=== PATIENT | female | born 1990 | race Caucasian/White ===

== ENCOUNTER 2020-06-23 14:22 | Outpatient (CLI) | payer OTHER, SELFPAY ==
[2020-06-23 14:43] VITALS: BP 124/80; PULSE 81
[2020-06-23 14:50] VITALS: BP 115/71; PULSE 78
[2020-06-23 15:01] VITALS: BP 129/81; PULSE 85
[2020-06-23 15:06] LABS: Basophils Percent Auto 0.1 % (0.2-1.2); Eosinophils Absolute Auto 0.1 K/mm3 (0-0.3); Eosinophils Percent Auto 0.5 % (0-4.4); Hematocrit 32.9 % (37.0-47.0); Hemoglobin 10.7 g/dL (12.0-15.0); Immature Granulocyte Absolute 0.08 K/mm3 (0.00-0.031); Immature Granulocyte Percent A 0.7 % (0-0.5); Lymphocytes Absolute Auto 2.24 K/mm3 (0.9-3.2); Mean Corpuscular HGB Conc 32.5 g/dl (32-36); Mean Corpuscular Hemoglobin 28.6 pg (26-34); Monocytes Absolute Auto 0.6 K/mm3 (0.1-0.6); Monocytes Percent Auto 5.6 % (2.6-8.5); Neutrophils Absolute Auto 8.2 K/mm3 (1.3-6.7); Neutrophils Percent Auto 73.1 % (45.5-73.1); Platelet Count Result 224 k/mm3 (150-375); Red Blood Count 3.74 M/mm3 (4.2-5.4); Red Cell Distribution Width 14.4 % (11.5-14.5); White Blood Count 11.2 K/mm3 (4.5-10.0)
[2020-06-23 15:07] LABS: Add Urine Microscopic? NO; Appearance Urine Clear (Clear); Bilirubin Urine Negative (Negative); Blood Urine Negative (Negative); Color Urine Colorless (Yellow); Glucose Urine UA Negative (Negative); Ketones Urine Negative (Negative); Leukocyte Esterase Ur Negative LEU/UL (Negative); Nitrate Urine Negative (Negative); Protein Urine Negative (Negative); Specific Grav Ur 1.005 (1.001-1.035); Urobilinogen Urine Negative mg/dL (<2.0)
[2020-06-23 15:13] VITALS: BMI 39.4
[2020-06-23 15:16] VITALS: BP 126/75; PULSE 90
[2020-06-23 15:17] VITALS: BP 126/75; PULSE 89
[2020-06-23 15:20] LABS: Alanine Aminotransferase 17 U/L (4-35); Albumin Level 3.4 g/dL (3.5-5.1); Alkaline Phosphatase 105 U/L (38-126); Anion Gap 6 mmol/L (8-16); Aspartate Amino Transferase 21 U/L (14-36); Bilirubin,Total 0.2 mg/dL (0.2-1.3); Blood Urea Nitrogen 11 mg/dL (7-17); Calcium 9.3 mg/dL (8.4-10.2); Carbon Dioxide 23 mmol/L (22-30); Chloride 105 mmol/L (98-107); Creatinine Urine 18.5 mg/dL; Estimated CRCL calculation 161 ml/min; Estimated Glomerular Filt Rate > 60; Glucose 102 mg/dL (65-105); Potassium 3.9 mmol/L (3.4-5.0); Sodium 134 mmol/L (137-145); Total Protein Urine Random 12 mg/dL; Ur Ttl Prot Creatinine Ratio 0.65 mg/mg (0-0.20); Uric Acid 5.7 mg/dL (2.5-7.5)
[2020-06-23 15:31] VITALS: BP 129/77; PULSE 80
--- NOTE | 2020-06-23 15:38 | PC.NURSE ---
Dr. Bo Estes returned page and informed of BP's, reactive NST, and lab results. Order for discharge received.
--- NOTE | 2020-06-23 15:41 | PM.OBTRLD ---
OB - Triage/Final Diagnosis Visit Information Reason for evaluation: other (gest htn) Evaluation Laboratory results: Laboratory Tests 06/23/20 06/23/20 06/23/20 14:57 14:57 14:57 WBC 11.2 H RBC 3.74 L Hgb 10.7 L Hct 32.9 L MCV 88.0 MCH 28.6 MCHC 32.5 RDW 14.4 Plt Count 224 MPV 12.0 H Immature Gran % (Auto) 0.7 H Neut % (Auto) 73.1 Lymph % (Auto) 20.0 [place] % (Auto) 5.6 Eos % (Auto) 0.5 Baso % (Auto) 0.1 L Lymph # (Auto) 2.24 [place] # (Auto) 0.6 Eos # (Auto) 0.1 Baso # (Auto) 0.0 Abs Immat Gran (auto) 0.08 H Absolute Neuts (auto) 8.2 H Absolute Nucleated RBC 0.0 Nucleated RBC % 0.0 Sodium 134 L Potassium 3.9 Chloride 105 Carbon Dioxide 23 Anion Gap 6 L BUN 11 Creatinine 0.60 L Estim Creat Clear Calc 161 Estimated GFR > 60 Glucose 102 Uric Acid 5.7 Calcium 9.3 Total Bilirubin 0.2 AST 21 ALT 17 Alkaline Phosphatase 105 Total Protein 6.0 L Albumin 3.4 L Urine Color Urine Appearance Urine pH Ur Specific [place] Urine Protein Urine Glucose (UA) Urine Ketones Ur Blood (Man) Urine Nitrate Urine Bilirubin Urine Urobilinogen Leukocyte Esterase Rfl U Random Total Protein 12 Urine Creatinine 18.5 06/23/20 14:57 WBC RBC Hgb Hct MCV MCH MCHC RDW Plt Count MPV Immature Gran % (Auto) Neut % (Auto) Lymph % (Auto) [place] % (Auto) Eos % (Auto) Baso % (Auto) Lymph # (Auto) [place] # (Auto) Eos # (Auto) Baso # (Auto) Abs Immat Gran (auto) Absolute Neuts (auto) Absolute Nucleated RBC Nucleated RBC % Sodium Potassium Chloride Carbon Dioxide Anion Gap BUN Creatinine Estim Creat Clear Calc Estimated GFR Glucose Uric Acid Calcium Total Bilirubin AST ALT Alkaline Phosphatase Total Protein Albumin Urine Color Colorless Urine Appearance Clear Urine pH 7.0 Ur Specific [place] 1.005 Urine Protein Negative Urine Glucose (UA) Negative Urine Ketones Negative Ur Blood (Man) Negative Urine Nitrate Negative Urine Bilirubin Negative Urine Urobilinogen Negative Leukocyte Esterase Rfl Negative U Random Total Protein Urine Creatinine Vital signs: Vital Signs - 24 hr 06/23/20 14:43 06/23/20 14:50 06/23/20 15:01 Pulse Rate 81 78 85 Blood Pressure 115/71 129/81 Blood Pressure [Left Arm] 124/80 06/23/20 15:16 06/23/20 15:17 06/23/20 15:31 Pulse Rate 90 89 80 Blood Pressure 126/75 129/77 Blood Pressure [Left Arm] 126/75
== END 2020-06-23 15:48 ==
LOC: ANHOBOP 14:26 → ANHOBPP 14:45
PROVIDERS: PCP Family Medicine; Visit Provider Obstetrics & Gynecology
DX: O13.9 Gestational [pregnancy-induced] hypertension without significant proteinuria, unspecified trimester (principal); Z3A.00 Weeks of gestation of pregnancy not specified
CPT/HCPCS: 36415; 59025; 80053; 81003; 82570; 84156; 84550; 85025; 99199

== ENCOUNTER 2020-07-14 04:52 | Inpatient (IN) | payer OTHER, SELFPAY ==
[2020-07-14] VITALS (94 sets, daily range): BP systolic 123–155; BP diastolic 54–102; PULSE 71–145; RESP 14–18; TEMP 36.6–37.2; O2SAT 72–100; BMI 40.2
--- NOTE | 2020-07-14 04:59 | LDADM ---
This patient, Edith White, was admitted to Labor/Delivery/Recovery 104 on 07/14/20 at 04:52. Plans for labor, pain management and were discussed with patient. Patient/family oriented to hospital policies and general routines including ID bracelet, bed and alarms, visiting hours, pain management, procedures, bathroom and other care routines, personal items, smoking policy, room service/diet and guest tray routines, security routines, and visiting hours. Patient/Family are encouraged to report perceived risks to care and to ask questions if they do not understand what they are told or what they should do. See OBIX for further documentation.
[2020-07-14] MEDS: LACTATED RINGERS 1,000 ML 125 ML IV CONT ×2 (05:31→07:15)
[2020-07-14] MEDS: OXYTOCIN 30 UNITS/NS 500 ML 30 UNITS/500 ML BAG 6 UNITS IV CONT (05:32)
[2020-07-14 05:46] LABS: Basophils Percent Auto 0.3 % (0.2-1.2); Eosinophils Absolute Auto 0.1 K/mm3 (0-0.3); Eosinophils Percent Auto 0.4 % (0-4.4); Hematocrit 36.6 % (37.0-47.0); Hemoglobin 11.8 g/dL (12.0-15.0); Immature Granulocyte Absolute 0.08 K/mm3 (0.00-0.031); Immature Granulocyte Percent A 0.7 % (0-0.5); Lymphocytes Absolute Auto 2.92 K/mm3 (0.9-3.2); Lymphocytes Percent Auto 25.9 % (18.3-44.2); Mean Corpuscular HGB Conc 32.2 g/dl (32-36); Mean Corpuscular Hemoglobin 28.4 pg (26-34); Mean Corpuscular Volume 88.2 fl (80-100); Mean Platelet Volume 12.6 fl (7.4-10.4); Monocytes Absolute Auto 0.6 K/mm3 (0.1-0.6); Monocytes Percent Auto 5.1 % (2.6-8.5); Neutrophils Absolute Auto 7.6 K/mm3 (1.3-6.7); Neutrophils Percent Auto 67.6 % (45.5-73.1); Platelet Count Result 209 k/mm3 (150-375); Red Blood Count 4.15 M/mm3 (4.2-5.4); Red Cell Distribution Width 14.9 % (11.5-14.5); White Blood Count 11.3 K/mm3 (4.5-10.0)
--- NOTE | 2020-07-14 06:32 | WPDOBADMIT ---
Obstetrics - Admit Note Admission Note: record reviewed. No pertinent additions to the history and/or any subsequent changes in the physical findings that are not consistent with the expected course of the were found. Additions to the history and/or subsequent changes in the physical findings follow. None.
--- NOTE | 2020-07-14 06:32 | PM.IMHP ---
H&P: HPI History of Present Illness Date/Time: 07/14/20 06:32 Chief Complaint: iol Narrative: Edith White is a 29 year old female whose last menstrual period was 10/09/2019, EDC is 07/15/2020, presents at 39 weeks gestation for induction of labor. has been uncomplicated. She has an early ultrasound confirming dates. Her cervix is favorable. She is negative for group B strep Review of Systems Review of Systems: All systems reviewed & are unremarkable except as noted in HPI and below PMFSH Family History Family History Grandparent Family history of heart disease in male family member before age 55 Family history of malignant neoplasm of breast Father Diabetes mellitus Mother Hypothyroidism Social History Social History Smoking status: Never smoker Second hand tobacco smoke exposure: No Alcohol intake: current Substance use: never Spiritual care concerns: No Meds Home Medications and Allergies Home Medications Medication Instructions Recorded Confirmed Type ferrous sulfate 325 mg PO DAILY 06/21/20 07/14/20 History prenat.vits,debora,[id number] 1 tablet PO DAILY 06/21/20 07/14/20 History [ #2] Allergies Allergy/AdvReac Type Severity Reaction Status Date / Time No Known Allergies Allergy Verified 06/21/20 12:41 Vital Signs Vital Signs - 24 hr 07/14/20 05:11 07/14/20 05:37 07/14/20 06:00 Temperature 98.3 F Pulse Rate 94 105 H Blood Pressure 125/80 131/83 07/14/20 06:31 Temperature Pulse Rate 90 Blood Pressure 123/88 Exam Const: General: no acute distress Eyes: General: appearance normal, both eyes and all related structures Neck: Neck: supple and no JVD Thyroid: thyroid normal Resp: Effort & Inspection: normal respiratory effort Auscultation: clear to auscultation bilaterally Cardio: Rate: regular rate Rhythm: regular rhythm GI: Inspection: non-distended GI Palp: Yes Soft to palpation, No Tenderness to palpation present (GI) and No Guarding due to palpation present (GI) Auscultation: normal bowel sounds : External Female Exam: normal external appearance Speculum Exam - Cervix: Cervical os closed (Cervix 4/80/1. AROM clear. FHTs were reassuring) Amniotic Fluid: clear Skin: General skin exam: no rashes or lesions noted Extrem: General: normal to inspection and no edema Psych: Mental Status: mental status grossly normal Affect: normal affect H&P: Results Labs Labs: Short CBC 07/14/20 Range/Units 05:25 WBC 11.3 H (4.5-10.0) K/mm3 Hgb 11.8 L (12.0-15.0) g/dL Hct 36.6 L (37.0-47.0) % Plt Count 209 (150-375) k/mm3 Assessment and Plan Additional Plan Impression: Term with favorable cervix Plan: Medical term for labor. Spontaneous vaginal delivery is expected. She has an epidural candidate
[2020-07-14 06:55] LABS: Rapid Plasma Reagin Non-Reactive (NonReactive)
--- NOTE | 2020-07-14 07:25 | WPDANESEPPF ---
Anes - Initial Pre Proc Eval Procedure: labor epidural Date/Time: 07/14/20 07:25 Surgeon: Prince Butcher MD Pre Op Diagnosis: labor pain Pre Op Diagnosis: Induction of Labor Patient Data Age: 29 Gender: F Height: 1.73 m Weight: 120 kg Last Vital Signs Temp 36.8 C 07/14/20 06:30 Pulse 84 07/14/20 07:25 BP 138/97 H 07/14/20 07:25 Pulse Ox 100 07/14/20 07:23 Allergies Allergy/AdvReac Type Severity Reaction Status Date / Time No Known Allergies Allergy Verified 06/21/20 12:41 Home Medications Medication Instructions Recorded Confirmed Type ferrous sulfate 325 mg PO DAILY 06/21/20 07/14/20 History prenat.vits,debora,[id number] 1 tablet PO DAILY 06/21/20 07/14/20 History [ #2] Laboratory Tests 07/14/20 07/14/20 07/14/20 05:25 05:25 05:25 WBC 11.3 K/mm3 H K/mm3 (4.5-10.0) RBC 4.15 M/mm3 L M/mm3 (4.2-5.4) Hgb 11.8 g/dL L g/dL (12.0-15.0) Hct 36.6 % L % (37.0-47.0) MCV 88.2 fl fl (80-100) MCH 28.4 pg pg (26-34) MCHC 32.2 g/dl g/dl (32-36) RDW 14.9 % H % (11.5-14.5) Plt Count 209 k/mm3 k/mm3 (150-375) MPV 12.6 fl H fl (7.4-10.4) Immature Gran % (Auto) 0.7 % H % (0-0.5) Neut % (Auto) 67.6 % % (45.5-73.1) Lymph % (Auto) 25.9 % % (18.3-44.2) [place] % (Auto) 5.1 % % (2.6-8.5) Eos % (Auto) 0.4 % % (0-4.4) Baso % (Auto) 0.3 % % (0.2-1.2) Lymph # (Auto) 2.92 K/mm3 K/mm3 (0.9-3.2) [place] # (Auto) 0.6 K/mm3 K/mm3 (0.1-0.6) Eos # (Auto) 0.1 K/mm3 K/mm3 (0-0.3) Baso # (Auto) 0.0 K/mm3 K/mm3 (0.0-0.1) Abs Immat Gran (auto) 0.08 K/mm3 H K/mm3 (0.00-0.031) Absolute Neuts (auto) 7.6 K/mm3 H K/mm3 (1.3-6.7) Absolute Nucleated RBC 0.0 K/mm3 K/mm3 (0.0-0.012) Nucleated RBC % 0.0 % % (0.0-0.2) RPR Non-reactive (NonReactive) Blood Type A Positive Antibody Screen Negative Patient hx anesthesia problems: none Family hx anesthesia problems: none PMFSH Family History Family History Grandparent Family history of heart disease in male family member before age 55 Family history of malignant neoplasm of breast Father Diabetes mellitus Mother Hypothyroidism Social History Social History Smoking status: Never smoker Second hand tobacco smoke exposure: No Alcohol intake: current Substance use: never Spiritual care concerns: No Anes - Eval Final PreProcedure Day of Procedure 07/14/20 07:25 Patient weight: morbidly obese ASA classification: III Anesthesia type and monitoring: regional epidural Informed Consent: The patient's anesthetic plan and its attendant risks and benefits were discussed with the patient/family/POA. Questions were solicited and answers provided to the satisfaction of the patient/family/POA.
--- NOTE | 2020-07-14 09:35 | PM.OBPNVD ---
OB - PN: Subj Subjective Date/time seen: 07/14/20 09:35 cx 8 by rn exam fhts reassuring OB - PN: Obj Data Labs CBC & Chem 7: 07/14/20 05:25 Labs: Laboratory Results - last 24 hr 07/14/20 07/14/20 07/14/20 05:25 05:25 05:25 WBC 11.3 H RBC 4.15 L Hgb 11.8 L Hct 36.6 L MCV 88.2 MCH 28.4 MCHC 32.2 RDW 14.9 H Plt Count 209 MPV 12.6 H Immature Gran % (Auto) 0.7 H Neut % (Auto) 67.6 Lymph % (Auto) 25.9 [place] % (Auto) 5.1 Eos % (Auto) 0.4 Baso % (Auto) 0.3 Lymph # (Auto) 2.92 [place] # (Auto) 0.6 Eos # (Auto) 0.1 Baso # (Auto) 0.0 Abs Immat Gran (auto) 0.08 H Absolute Neuts (auto) 7.6 H Absolute Nucleated RBC 0.0 Nucleated RBC % 0.0 RPR Non-reactive Blood Type A Positive Antibody Screen Negative OB - PN A/P Time Spent With Patient Time: Total time spent is greater than 50% in coordination of care (as documented) at patient's floor/unit and/or counseling patient:
--- NOTE | 2020-07-14 11:21 | PM.OBPRVD ---
OB - Delivery Note Procedure Delivery date: 07/14/20 Procedure: mil Intrapartal events: None Induction method: AROM Delivery augmentation: pitocin Delivery monitor: external FHT Route of delivery: Episiotomy description: None Laceration Description: Perineal - 2nd Degree Quantitative Blood Loss (ml): 158 Anesthesia type: Epidural Disposition: floor [place] Baby Date of : 07/14/20 Time of : 11:09 Weeks of gestation at delivery: 39 Infant gender: Male Weight (pounds): 8 Weight (ounces): 9 presentation: vertex position: Right Occiput Anterior Placenta delivery description: Spontaneous cord vessel description: 3 Vessels and Clamped/Cut score one minute: 9 score five minutes: 9
[2020-07-14] MEDS: OXYTOCIN 30 UNITS/NS 500 ML 30 UNITS/500 ML BAG 125 UNITS IV CONT (11:38)
--- NOTE | 2020-07-14 15:33 | PC.NURSE ---
Consulted with patient, reviewed feeding cues, frequencies, duration of feedings, feeding elimination flow sheet, and signs of adequate intake. Demonstrated stimulation techniques to wake for feeding. Assisted with to breast. Reviewed positioning/alignment, holding breast and asymmetrical latch on. was sleepy and unable to latch correctly. Reviewed signs of a correct latch, effective nursing and suck swallow ratio. Instructed mother to call out for RN assistance if she is unable to latch infant for feeding or she has discomfort with nursing. Instructed feeding should be initiated three hours from start of last feeding or if feeding cues are noted before. Infant put skin to skin and mom encouraged to watch for feeding cues and to attempt again in 30 minutes. Mother voiced understanding of information shared.
[2020-07-14] MEDS: DOCUSATE SODIUM 100 MG CAPSULE PO (16:57)
[2020-07-14] MEDS: IBUPROFEN 600 MG TABLET PO ×2 (16:57→23:32)
[2020-07-14] MEDS: LANOLIN (LANSINOH) 7.5 GM CREAM 1 APPLIC TOPICAL (16:57)
--- NOTE | 2020-07-14 18:28 | PC.NURSE ---
Addendum entered by Ave Emerson RN 07/14/20 18:29: Admitted at 1455 to room 281. Original Note: Patient transferred to post room # via 281 per wheelchair. Support person present. Oriented to unit, room, information board, rooming in, admission packet and security measures. Patient verbalizes understanding.
[2020-07-15 05:32] LABS: Hematocrit 30.3 % (37.0-47.0); Hemoglobin 9.9 g/dL (12.0-15.0)
[2020-07-15] MEDS: IBUPROFEN 600 MG TABLET PO ×4 (05:50→23:55)
--- NOTE | 2020-07-15 06:20 | PM.OBPNVD ---
OB - PN: Subj Subjective Date/time seen: 07/15/20 06:20 Patient comments: no complaints and pain well controlled baby status: doing well and nursing well OB - PN: Obj Data Labs CBC & Chem 7: 07/15/20 04:17 Labs: Laboratory Results - last 24 hr 07/14/20 07/14/20 07/15/20 05:25 05:25 04:17 Hgb 9.9 L Hct 30.3 L RPR Non-reactive Blood Type A Positive Antibody Screen Negative OB - PN A/P Plan day: 1 Plan: routine care Time Spent With Patient Time: Total time spent is greater than 50% in coordination of care (as documented) at patient's floor/unit and/or counseling patient: Time with patient: less than 15 minutes Review of Systems Review of Systems: All systems reviewed & are unremarkable except as noted in HPI and below Exam Const: General: no acute distress Eyes: General: appearance normal, both eyes and all related structures Neck: Neck: supple and no JVD Thyroid: thyroid normal Resp: Effort & Inspection: normal respiratory effort Auscultation: clear to auscultation bilaterally Cardio: Rate: regular rate Rhythm: regular rhythm GI: Inspection: non-distended GI Palp: Yes Soft to palpation, No Tenderness to palpation present (GI) and No Guarding due to palpation present (GI) Auscultation: normal bowel sounds : General: Yes bladder normal to palpation External Female Exam: normal external appearance Speculum Exam - Vagina: normal vaginal discharge and No vaginal bleeding Speculum Exam - Cervix: nontender Bimanual exam- vagina & uterus: bladder normal to palpation and No Cervical tenderness present OB/external & speculum: No vaginal bleeding Skin: General skin exam: no rashes or lesions noted Extrem: General: normal to inspection and no edema Psych: Mental Status: mental status grossly normal Affect: normal affect
[2020-07-15 07:15] VITALS: PULSE 87; RESP 14; O2SAT 97
[2020-07-15 08:00] VITALS: BP 127/69; PULSE 84; RESP 18; TEMP 36.7; O2SAT 99
--- NOTE | 2020-07-15 09:00 | WPDANLDPN2 ---
Anes-Prog Note L&D Date/Time: 07/15/20 09:00 Comfortable throughout: labor and delivery Neuraxial method: epidural Epidural/Spinal procedure site: clean & non-tender Neuro status: Neuro function grossly intact. Cardiovascular status: normal Respiratory status: normal Airway patency: baseline Mental status: baseline Post-Op hydration status: normal Vital Signs: Last Vital Signs Temp 37.0 C 07/14/20 19:20 Pulse 87 07/15/20 07:15 Resp 14 07/15/20 07:15 BP 123/62 07/14/20 19:20 Pulse Ox 97 07/15/20 07:15 Pain score (VAS): 1 Post-procedural complaints: none Patient feedback: Patient satisfied with anesthetic care.
[2020-07-15] MEDS: MULTIVIT/MIN/PREN/FOL AC/IRON TABLET 1 TAB PO (09:08)
[2020-07-15] MEDS: DOCUSATE SODIUM 100 MG CAPSULE PO ×2 (09:08→17:28)
[2020-07-15] MEDS: POLYSACCHARIDE IRON COMPLEX 150 MG CAPSULE PO ×2 (09:08→17:28)
[2020-07-15 20:10] VITALS: BP 137/75; PULSE 104; RESP 16; TEMP 36.8; O2SAT 98
[2020-07-16 04:58] LABS: Basophils Percent Auto 0.3 % (0.2-1.2); Eosinophils Absolute Auto 0.2 K/mm3 (0-0.3); Eosinophils Percent Auto 1.5 % (0-4.4); Hematocrit 28.9 % (37.0-47.0); Hemoglobin 9.5 g/dL (12.0-15.0); Immature Granulocyte Absolute 0.13 K/mm3 (0.00-0.031); Lymphocytes Percent Auto 24.8 % (18.3-44.2); Mean Corpuscular HGB Conc 32.9 g/dl (32-36); Mean Corpuscular Hemoglobin 28.8 pg (26-34); Mean Corpuscular Volume 87.6 fl (80-100); Mean Platelet Volume 12.2 fl (7.4-10.4); Monocytes Absolute Auto 0.7 K/mm3 (0.1-0.6); Monocytes Percent Auto 5.1 % (2.6-8.5); Neutrophils Absolute Auto 8.7 K/mm3 (1.3-6.7); Neutrophils Percent Auto 67.3 % (45.5-73.1); Platelet Count Result 179 k/mm3 (150-375); Red Cell Distribution Width 15.1 % (11.5-14.5); White Blood Count 12.9 K/mm3 (4.5-10.0)
[2020-07-16 05:05] LABS: Alanine Aminotransferase 17 U/L (4-35); Albumin Level 3.1 g/dL (3.5-5.1); Alkaline Phosphatase 86 U/L (38-126); Anion Gap 5 mmol/L (8-16); Aspartate Amino Transferase 23 U/L (14-36); Bilirubin,Total 0.2 mg/dL (0.2-1.3); Blood Urea Nitrogen 11 mg/dL (7-17); Calcium 8.5 mg/dL (8.4-10.2); Carbon Dioxide 25 mmol/L (22-30); Chloride 106 mmol/L (98-107); Estimated CRCL calculation 163 ml/min; Estimated Glomerular Filt Rate > 60; Glucose 86 mg/dL (65-105); Sodium 136 mmol/L (137-145)
[2020-07-16] MEDS: WITCH HAZEL 40 PADS 1 PAD TOPICAL (05:24)
[2020-07-16] MEDS: IBUPROFEN 600 MG TABLET PO ×2 (05:24→12:09)
--- NOTE | 2020-07-16 08:24 | PM.OBPNVD ---
OB - PN: Subj Subjective Date/time seen: 07/16/20 08:24 Patient comments: no complaints and pain well controlled baby status: doing well and nursing well OB - PN: Obj Data Labs CBC & Chem 7: 07/16/20 04:40 07/16/20 04:40 Labs: Laboratory Results - last 24 hr 07/16/20 07/16/20 04:40 04:40 WBC 12.9 H RBC 3.30 L Hgb 9.5 L Hct 28.9 L MCV 87.6 MCH 28.8 MCHC 32.9 RDW 15.1 H Plt Count 179 MPV 12.2 H Immature Gran % (Auto) 1.0 H Neut % (Auto) 67.3 Lymph % (Auto) 24.8 [place] % (Auto) 5.1 Eos % (Auto) 1.5 Baso % (Auto) 0.3 Lymph # (Auto) 3.20 [place] # (Auto) 0.7 H Eos # (Auto) 0.2 Baso # (Auto) 0.0 Abs Immat Gran (auto) 0.13 H Absolute Neuts (auto) 8.7 H Absolute Nucleated RBC 0.0 Nucleated RBC % 0.0 Sodium 136 L Potassium 4.0 Chloride 106 Carbon Dioxide 25 Anion Gap 5 L BUN 11 Creatinine 0.60 L Estim Creat Clear Calc 163 Estimated GFR > 60 Glucose 86 Calcium 8.5 Total Bilirubin 0.2 AST 23 ALT 17 Alkaline Phosphatase 86 Total Protein 6.0 L Albumin 3.1 L OB - PN A/P Plan day: 2 Plan: routine care, discharge home and follow up 6 weeks Time Spent With Patient Time: Total time spent is greater than 50% in coordination of care (as documented) at patient's floor/unit and/or counseling patient: Time with patient: less than 15 minutes Review of Systems Review of Systems: All systems reviewed & are unremarkable except as noted in HPI and below Exam Const: General: no acute distress Eyes: General: appearance normal, both eyes and all related structures Neck: Neck: supple and no JVD Thyroid: thyroid normal Resp: Effort & Inspection: normal respiratory effort Auscultation: clear to auscultation bilaterally Cardio: Rate: regular rate Rhythm: regular rhythm GI: Inspection: non-distended GI Palp: Yes Soft to palpation, No Tenderness to palpation present (GI) and No Guarding due to palpation present (GI) Auscultation: normal bowel sounds : General: Yes bladder normal to palpation External Female Exam: normal external appearance Speculum Exam - Vagina: normal vaginal discharge and No vaginal bleeding Speculum Exam - Cervix: nontender Bimanual exam- vagina & uterus: bladder normal to palpation and No Cervical tenderness present OB/external & speculum: No vaginal bleeding Skin: General skin exam: no rashes or lesions noted Extrem: General: normal to inspection and no edema Psych: Mental Status: mental status grossly normal Affect: normal affect
--- NOTE | 2020-07-16 08:25 | PM.DS ---
DS: Admitting Diagnosis Admitting Diagnosis Admitting Diagnosis: term iup DS: Summary Hospital Course Hospital Course: the patient was admitted for induction of labor and underwent spontaneous vaginal delivery. Her hospital course was unremarkable. She did complain of some fatigue however her hemoglobin and labs all remained within limits she was up, voiding without difficulty passing gas, eating, and general without complaints. Time Spent with Patient Time attestation: Total time spent providing and/or coordinating discharge services: Exam Const: General: no acute distress Eyes: General: appearance normal, both eyes and all related structures Neck: Neck: supple and no JVD Thyroid: thyroid normal Resp: Effort & Inspection: normal respiratory effort Auscultation: clear to auscultation bilaterally Cardio: Rate: regular rate Rhythm: regular rhythm GI: Inspection: non-distended GI Palp: Yes Soft to palpation, No Tenderness to palpation present (GI) and No Guarding due to palpation present (GI) Auscultation: normal bowel sounds : General: Yes bladder normal to palpation External Female Exam: normal external appearance Speculum Exam - Vagina: normal vaginal discharge and No vaginal bleeding Speculum Exam - Cervix: nontender Bimanual exam- vagina & uterus: bladder normal to palpation and No Cervical tenderness present OB/external & speculum: No vaginal bleeding Skin: General skin exam: no rashes or lesions noted Extrem: General: normal to inspection and no edema Psych: Mental Status: mental status grossly normal Affect: normal affect DS: Data Data Completed and Pending Labs on day of discharge: Labs from last 24 hours 07/16/20 07/16/20 04:40 04:40 WBC 12.9 H RBC 3.30 L Hgb 9.5 L Hct 28.9 L MCV 87.6 MCH 28.8 MCHC 32.9 RDW 15.1 H Plt Count 179 MPV 12.2 H Immature Gran % (Auto) 1.0 H Neut % (Auto) 67.3 Lymph % (Auto) 24.8 [place] % (Auto) 5.1 Eos % (Auto) 1.5 Baso % (Auto) 0.3 Lymph # (Auto) 3.20 [place] # (Auto) 0.7 H Eos # (Auto) 0.2 Baso # (Auto) 0.0 Abs Immat Gran (auto) 0.13 H Absolute Neuts (auto) 8.7 H Absolute Nucleated RBC 0.0 Nucleated RBC % 0.0 Sodium 136 L Potassium 4.0 Chloride 106 Carbon Dioxide 25 Anion Gap 5 L BUN 11 Creatinine 0.60 L Estim Creat Clear Calc 163 Estimated GFR > 60 Glucose 86 Calcium 8.5 Total Bilirubin 0.2 AST 23 ALT 17 Alkaline Phosphatase 86 Total Protein 6.0 L Albumin 3.1 L Discharge Plan Discharge Attending physician on discharge: Prince Butcher Discharging Clinician: Prince Butcher Patient Disposition: Home, Self-Care Activity: may shower, no straining and pelvic rest Diet: heart healthy Patient Instructions: Antibiotic Form Stand Alone Forms: General Discharge Information Follow-up/Referrals: Prince Butcher MD [Physician] - Discharge Medications: Continued ferrous sulfate 325 mg (65 mg iron) Tablet 325 mg PO DAILY RF: 0 #2 Tablet 1 tablet PO DAILY RF: 0 Date of admission: 07/14/20 04:52 Primary Care Provider: Ramesh Rendon Admitting Provider: Prince Butcher Attending physician on admission: Prince Butcher Condition: Stable
[2020-07-16 08:35] VITALS: BP 125/82; PULSE 97; RESP 18; TEMP 36.2
[2020-07-16] MEDS: MULTIVIT/MIN/PREN/FOL AC/IRON TABLET 1 TAB PO (09:38)
[2020-07-16] MEDS: DOCUSATE SODIUM 100 MG CAPSULE PO (09:38)
[2020-07-16] MEDS: POLYSACCHARIDE IRON COMPLEX 150 MG CAPSULE PO (09:38)
[2020-07-18 08:30] VITALS: BP 148/82; PULSE 87; RESP 20; TEMP 36.7; O2SAT 100
== END 2020-07-16 13:12 | disposition home or self-care (01) | DRG 807 ==
LOC: ANHLDR 04:56 → ANHOB2 15:07
PROVIDERS: Admitting Provider Obstetrics & Gynecology; PCP Family Medicine; Visit Provider Obstetrics & Gynecology
DX: O99.214 Obesity complicating childbirth (principal); Z37.0 Single live birth; Z3A.39 39 weeks gestation of pregnancy; E66.01 Morbid (severe) obesity due to excess calories; O70.1 Second degree perineal laceration during delivery
CPT/HCPCS: 36415; 80053; 85014; 85018; 85025; 86592; 86850; 86900; 86901; A9270; J2590; J2795; J7120

== ENCOUNTER 2020-08-01 20:30 | Outpatient (CLI) | payer OTHER, SELFPAY ==
[2020-08-01 21:05] VITALS: TEMP 38.2
[2020-08-01 21:14] LABS: Basophils Percent Auto 0.2 % (0.2-1.2); Eosinophils Absolute Auto 0.3 K/mm3 (0-0.3); Eosinophils Percent Auto 2.1 % (0-4.4); Hematocrit 36.5 % (37.0-47.0); Hemoglobin 11.2 g/dL (12.0-15.0); Immature Granulocyte Absolute 0.05 K/mm3 (0.00-0.031); Immature Granulocyte Percent A 0.4 % (0-0.5); Lymphocytes Absolute Auto 1.62 K/mm3 (0.9-3.2); Lymphocytes Percent Auto 12.3 % (18.3-44.2); Mean Corpuscular HGB Conc 30.7 g/dl (32-36); Mean Corpuscular Hemoglobin 27.8 pg (26-34); Mean Corpuscular Volume 90.6 fl (80-100); Mean Platelet Volume 10.5 fl (7.4-10.4); Monocytes Absolute Auto 0.8 K/mm3 (0.1-0.6); Neutrophils Absolute Auto 10.4 K/mm3 (1.3-6.7); Platelet Count Result 263 k/mm3 (150-375); Red Blood Count 4.03 M/mm3 (4.2-5.4); Red Cell Distribution Width 14.4 % (11.5-14.5); White Blood Count 13.2 K/mm3 (4.5-10.0)
[2020-08-01 21:19] LABS: Add Urine Microscopic? YES; Appearance Urine Clear (Clear); Bacteria Urine Trace /hpf; Bilirubin Urine Negative (Negative); Blood Urine 2+ (Negative); Color Urine Yellow (Yellow); Glucose Urine UA Negative (Negative); Ketones Urine Negative (Negative); Leukocyte Esterase Ur 3+ LEU/UL (NEGATIVE); Mucus Urine Rare /lpf; Nitrate Urine Negative (Negative); Protein Urine 1+ mg/dL (Negative); RBC Urine 21-50 /hpf (0-2); Squamous Epithelial Cell Urine Rare /hpf (Few); Urobilinogen Urine Negative mg/dL (<2.0); WBC Urine 16-20 /hpf (0-3)
[2020-08-01 21:21] LABS: Creatinine Urine 267.5 mg/dL; Specific Grav Ur 1.032 (1.001-1.035); Total Protein Urine Random 10 mg/dL; Ur Ttl Prot Creatinine Ratio 0.04 mg/mg (0-0.20)
[2020-08-01 21:25] LABS: Alanine Aminotransferase 46 U/L (4-35); Albumin Level 3.6 g/dL (3.5-5.1); Alkaline Phosphatase 91 U/L (38-126); Anion Gap 9 mmol/L (8-16); Aspartate Amino Transferase 25 U/L (14-36); Bilirubin,Total 0.3 mg/dL (0.2-1.3); Blood Urea Nitrogen 13 mg/dL (7-17); Calcium 8.4 mg/dL (8.4-10.2); Carbon Dioxide 24 mmol/L (22-30); Chloride 104 mmol/L (98-107); Estimated Glomerular Filt Rate > 60; Glucose 106 mg/dL (65-105); Potassium 3.6 mmol/L (3.4-5.0); Sodium 137 mmol/L (137-145); Uric Acid 6.6 mg/dL (2.5-7.5)
== END 2020-08-01 21:45 | disposition home or self-care (01) ==
PROVIDERS: Obstetrics & Gynecology; PCP Family Medicine; Referring Provider Obstetrics & Gynecology; Visit Provider Obstetrics & Gynecology
DX: O16.5 Unspecified maternal hypertension, complicating the puerperium (principal)
CPT/HCPCS: 36415; 80053; 81001; 82570; 84156; 84550; 85025; 87086; 87088

== ENCOUNTER 2020-08-03 12:26 | Inpatient (IN) | payer OTHER, SELFPAY ==
[2020-08-03] VITALS (29 sets, daily range): BP systolic 112–138; BP diastolic 68–106; PULSE 86–124; RESP 14–24; TEMP 36.2–36.6; O2SAT 97–100; BMI 36.1
--- NOTE | ~2020-08-03 | CT_ITS ---
EXAMINATION: CTA chest PE protocol DATE: 08/03/2020 14:47 INDICATION: Chest pain. TECHNIQUE: Computed tomography angiography (CTA) of the chest was performed with 100 mL Omnipaque-350 intravenous contrast timed to evaluate the pulmonary arteries. Coronal maximum intensity projection 3D-reconstructions were created by the technologist. Automated exposure control and iterative reconst ruction technique were employed. The dose-length product was 547.72 mGy-cm. COMPARISON: None. FINDINGS: There is smooth septal thickening in the lungs, consistent with mild pulmonary edema. There are small pleural effusions. The heart size is normal. No pericardial effusion. There is no pulmonar y embolus. There is mild thoracic spondylosis. IMPRESSION: 1. No pulmonary embolus. 2. Mild pulmonary edema. 3. Small pleural effusions. Reviewed, dictated and finalized at location A. STRATEGY
--- NOTE | ~2020-08-03 | XR_ITS ---
EXAMINATION: XR chest 2V DATE: 08/03/2020 13:40 INDICATION: Chest pain and shortness of breath TECHNIQUE: PA and lateral views of the chest were obtained. COMPARISON: Chest radiograph dated 07/05/2004 FINDINGS: Mild increased interstitial opacities with bronchial wall thickening the bilateral infrahilar regions . No other airspace opacities or pneumothorax. There are small bilateral pleural effusions with blunt ing at the left costophrenic angle and bilateral posterior sulci. The cardiomediastinal silhouette is normal. Visualized bones and soft tissues are unremarkable. IMPRESSION: 1. Very small bilateral pleural effusions. 2. Mild increased interstitial pattern with bronchial wall thickening in the bilateral infrahilar reg ions. Differential would include minimal pulmonary edema, bronchitis, early or viral pneumonia and re active airway disease/asthma. Reviewed, dictated and finalized at location B. IOLOGY PHYSICIAN ASSISTANT IMPRESSION: 1. Very small bilateral pleural effusions. 2. Mild increased interstitial pattern with bronchial wall thickening in the bi lateral infrahilar regions. Differential would include minimal pulmonary edema, bronchitis, early or viral pneumonia and reactive airway disease/asthma.
--- NOTE | 2020-08-03 12:27 | ECG_ITS ---
Measurements Intervals [place] Rate: 85 P: 54 AR: 164 QRS: 64 QRSD: 95 T: 38 QT: 327 QTc: 390 Interpretive Statements SINUS RHYTHM NONSPECIFIC T-WAVE ABNORMALITY- INFERIOR LEADS BASELINE ARTIFACT- I, II, AVR, AVL, V1-V2 BORDERLINE ECG Electronically Signed On 08-03-2020 12:44:40 VASCULAR SURGEON by Sukhjinder Cardenas D.O.
[2020-08-03 13:01] LABS: Basophils Percent Auto 0.2 % (0.2-1.2); Eosinophils Absolute Auto 0.3 K/mm3 (0-0.3); Eosinophils Percent Auto 2.5 % (0-4.4); Hematocrit 34.6 % (37.0-47.0); Immature Granulocyte Absolute 0.06 K/mm3 (0.00-0.031); Immature Granulocyte Percent A 0.5 % (0-0.5); Lymphocytes Percent Auto 16.6 % (18.3-44.2); Mean Corpuscular HGB Conc 31.8 g/dl (32-36); Mean Corpuscular Hemoglobin 28.1 pg (26-34); Mean Corpuscular Volume 88.3 fl (80-100); Mean Platelet Volume 10.8 fl (7.4-10.4); Monocytes Absolute Auto 0.6 K/mm3 (0.1-0.6); Monocytes Percent Auto 5.2 % (2.6-8.5); Platelet Count Result 268 k/mm3 (150-375); Red Blood Count 3.92 M/mm3 (4.2-5.4); Red Cell Distribution Width 14.4 % (11.5-14.5)
[2020-08-03 13:17] LABS: Anion Gap 7 mmol/L (8-16); Blood Urea Nitrogen 13 mg/dL (7-17); Calcium 8.8 mg/dL (8.4-10.2); Carbon Dioxide 26 mmol/L (22-30); Chloride 108 mmol/L (98-107); Estimated CRCL calculation 155 ml/min; Estimated Glomerular Filt Rate > 60; Glucose 92 mg/dL (65-105); Potassium 3.5 mmol/L (3.4-5.0); Sodium 141 mmol/L (137-145)
[2020-08-03 13:20] LABS: Prothrombin Time 13.5 Seconds (11.1-14.7)
[2020-08-03 13:21] LABS: Partial Thromboplastin Time 29.6 SECONDS (22.3-36.8)
[2020-08-03 13:40] LABS: Troponin I 0.335 ng/mL (0.000-0.034)
--- NOTE | 2020-08-03 14:07 | ED.CHESTPAIN ---
HPI - Chest Pain General Chief Complaint: Chest Pain Stated Complaint: chest tightness, sob Time Seen by Provider: 08/03/20 13:51 History of Present Illness HPI narrative: 29 yo female with no significant active medical issue presents to the ED for chest tightness. She first began having symptoms 4 days ago. She has had cough, chest tightness, mild dyspnea and diarrhea. She was concerned that she may have COVID -19. She had a negative test done on 08/01. Her symptoms are worse today. Troponin checked during triage was significantly elevated. She did have hypertension post . She was getting labetalol. She reports intermittent right calf pain without swelling. Related Data Home Medications Medication Instructions Recorded Confirmed ferrous sulfate 325 mg PO DAILY 06/21/20 07/14/20 prenat.vits,debora,[id number]-[id number] 1 tablet PO DAILY 06/21/20 07/14/20 Allergies Allergy/AdvReac Type Severity Reaction Status Date / Time No Known Allergies Allergy Verified 08/03/20 12:33 Review of Systems Review of Systems: All systems reviewed & are unremarkable except as noted in HPI and below Constitutional: Constitutional: Denies chills and Denies weakness Cardiovascular: Cardiovascular: Reports chest pain and Denies radiating jaw, neck or arm pain Respiratory: Respiratory: Reports cough and Reports dyspnea Gastrointestinal: Gastrointestinal: Reports diarrhea and Reports nausea Genitourinary: Genitourinary: Reports nocturia and Reports dysuria Musculoskeletal: Musculoskeletal: Reports myalgias Neurologic: Denies dizziness, Denies numbness and Denies weakness [facility] Family History Family History Grandparent Family history of heart disease in male family member before age 55 Family history of malignant neoplasm of breast Father Diabetes mellitus Mother Hypothyroidism Social History Social History Smoking status: Never smoker Second hand tobacco smoke exposure: No Alcohol intake: current Substance use: never Gender identity (if verbalized by the patient): Female Spiritual care concerns: No Exam Const: General: healthy appearing, no acute distress and alert Orientation/consciousness: patient oriented x3 HENMT: Head: normal to inspection Neck: Neck: normal visual inspection and no lymphadenopathy Chest: Chest palpation & inspection: no tenderness Resp: Effort & Inspection: normal respiratory effort Auscultation: clear to auscultation bilaterally, no rales, no rhonchi and no wheezes Cardio: Jugular venous distension: no JVD Rate: regular rate Rhythm: regular rhythm Heart sounds: no murmurs GI: Inspection: non-distended GI Palp: Yes Soft to palpation and No Tenderness to palpation present (GI) Skin: General skin exam: normal color Neuro: General: patient oriented x3 and moves all extremities Speech: normal speech Extrem: General: no edema Psych: Appearance: well kempt Affect: normal affect Course Vital Signs Vital signs: Vital Signs Temperature 36.2 C L 08/03/20 12:29 Pulse Rate 97 08/03/20 12:29 Respiratory Rate 18 08/03/20 12:29 Blood Pressure 122/73 08/03/20 12:29 Pulse Oximetry 100 08/03/20 12:29 Temperature 36.2 C L 08/03/20 12:29 Pulse Rate 110 H 08/03/20 15:07 Respiratory Rate 20 08/03/20 14:50 Blood Pressure 122/73 08/03/20 12:29 Pulse Oximetry 99 08/03/20 14:18 MDM - Chest Pain Differential Diagnosis Differential diagnosis: Likely other ( cardiomyopathy, myocarditis) Medical Records Data Attestation: I reviewed the patient's medical records. Lab Data Attestation: I reviewed the patient's lab results. Result diagrams: 08/03/20 12:51 08/03/20 12:51 Labs: Lab Results 08/03/20 08/03/20 08/03/20 Range/Units 12:51 12:51 12:51 WBC 12.0 H (4.5-10.0) K/mm3 RBC 3.92 L (4.
[2020-08-03] MEDS: ASPIRIN 81 MG CHEWABLE TABLET 324 MG PO (14:18)
[2020-08-03 14:41] LABS: NT Pro B Type Natriuretic Pept 1190 PG/ML (5-100)
[2020-08-03 14:55] LABS: Add Urine Microscopic? YES; Appearance Urine Clear (Clear); Bilirubin Urine Negative (Negative); Blood Urine Negative (Negative); Color Urine Yellow (Yellow); Glucose Urine UA Negative (Negative); Ketones Urine Negative (Negative); Leukocyte Esterase Ur Trace LEU/UL (Negative); Mucus Urine Few /lpf; Nitrate Urine Negative (Negative); Protein Urine 2+ mg/dL (Negative); RBC Urine 0-2 /hpf (0-2); Squamous Epithelial Cell Urine Few /hpf (Few); Urobilinogen Urine Negative mg/dL (<2.0)
[2020-08-03 14:56] LABS: Specific Grav Ur 1.038 (1.001-1.035)
--- NOTE | 2020-08-03 15:21 | PC.NURSE ---
received report from Naman REILLY. patient here with chest pain. see notes. 1st trop elevated. probable admission. resting on stretcher. on residential monitor. denies pain right now. denies needs. updated on current treatment plan and expected wait time. call light in reach.
[2020-08-03] MEDS: FUROSEMIDE INJ 40 MG/4 ML VIAL IV PUSH (15:59)
--- NOTE | 2020-08-03 17:01 | PC.NURSE ---
patient has breast pump here from OB department. patient was given instructions and can demonstrate use. pumping now. charge nurse and PA did discuss with patient pumping and medications that have been given in ED. patient assigned to room 209. SBAR completed and faxed.
--- NOTE | 2020-08-03 17:32 | PC.NURSE ---
attempted to call report. RN is not available and will call back.
--- NOTE | 2020-08-03 18:10 | PC.NURSE ---
cardiology still in room. patient's belongings packed up. will transfer to room 209 via stretcher.
--- NOTE | 2020-08-03 18:29 | PM.CNCAR ---
Assessment and Plan Assessment and plan (1) Elevated troponin: Code(s): R77.8 - Other specified abnormalities of plasma proteins Status: Acute Assessment and Plan: Significant and new. Uncertain etiology at this point. Possibilities include a myopericarditis which potentially could be viral versus cardiomyopathy versus ACS ( such as associated with a spontaneous dissection) although much less likely versus high blood pressure. Will continue to trend her troponins with serial cardiac enzymes. Will give her an aspirin 325 mg p.o. x1. Will check a ESR and a CRP as well as a 2D echocardiogram with Doppler. Labetalol 100 mg p.o. b.i.d. will be initiated. Furosemide 20 mg IV daily I am also going to repeat a COVID test for the possibility that the previous test was a false negative as her symptomatology supports a viral syndrome. (2) Chest pain: Code(s): R07.9 - Chest pain, unspecified Status: Acute Assessment and Plan: Significant and new. As above. She is also hypokalemia, will give her 40 mg of p.o. potassium chloride x1 (3) Elevated blood pressure affecting , antepartum: Code(s): O16.9 - Unspecified maternal hypertension, unspecified trimester Status: Acute Assessment and Plan: Labetalol to be continued (4) UTI (urinary tract infection): Code(s): N39.0 - Urinary tract infection, site not specified Status: Acute Assessment and Plan: Continue ceftriaxone History of Present Illness History of Present Illness Consult date/time: 08/03/20 18:29 Requesting physician: Jorge Peña MD Consult reason: chest pain Reason For Visit: cardiomyopathy Narrative: Date of service 08/03/20 History: Patient is a 29-year-old female who is 3 weeks post who presented to hospital because of chest pain. Patient did have elevated blood pressure near the end of her . After she delivers though she did have some spiking blood pressure that did require labetalol Street minute. She was started on labetalol 100 mg p.o. b.i.d. which did help her blood pressure. After her delivery her blood pressure was as high as 160 the 170/100. About 5 days ago though she had a an episode of coughing, low-grade fever of 100.8 while taking Tylenol and NSAIDs. She also describes a frontal headache, body aches, fever and diarrhea as well as migraine headache. This was 2 days ago. She did test for Coronavirus yesterday which was negative. Yesterday she felt better but then today as well as the end of yesterday she started have little bit of chest tightness and due to a multitude of symptoms including the chest tightness some abnormal labs headache and shortness of breath, she decided to come to hospital for further evaluation. Predominantly her body aches diarrhea and fever have resolved. She still has some issues with laying flat and actually has been sleeping with 2 pillows over the past couple of days. Chest tightness is in her anterior chest was radiates to her middle of her back. Her symptoms of tightness or worsen or she lays down or whenever she takes a big breath and better if she sits up. She has had some shortness of breath with activity also. No chest pain with activity. Initial troponin was elevated as was her BNP and white count. CT scan did not show a pulmonary embolism with small effusions were noted. Review of Systems Review of Systems: All systems reviewed & are unremarkable except as noted in HPI and below Constitutional: Constitutional: Denies weakness Eyes: Eyes: Denies blurry vision ENT: Denies Normal hearing present Cardiovascular: Cardiovascular: Reports chest pain and Reports leg edema Respiratory: Respiratory: Reports cough and Reports dyspnea Gastrointestinal: Gastrointestinal: Denies abdominal pain Genitourinary: Genitourinary: Denies flank pain Musculoskeletal: Musculoskeletal: Denies back pain and Denie
--- NOTE | 2020-08-03 18:31 | PC.NURSE ---
cardiology done. patient placed on transport monitor. covid swab done. biomedical engineering technician in room to transport patient to 209
[2020-08-03 18:48] LABS: Alanine Aminotransferase 34 U/L (4-35); Albumin Level 3.4 g/dL (3.5-5.1); Alkaline Phosphatase 85 U/L (38-126); Aspartate Amino Transferase 24 U/L (14-36); Bilirubin,Total 0.2 mg/dL (0.2-1.3)
--- NOTE | 2020-08-03 19:00 | PM.IMHP ---
H&P: HPI History of Present Illness Date/Time: 08/03/20 19:00 Chief Complaint: Chest pain and shortness of breath. Narrative: This is a very pleasant 29-year-old female who presented to the emergency department earlier today for evaluation of chest pain and mild shortness of breath. She is 3 weeks and reports an uncomplicated delivery of her 1st child on 07/14/2020. Not long after delivery she did have some elevated blood pressures, as high as 170/100, for which she was started on labetalol 100 mg b.i.d. Towards the end of her she had mild lower extremity edema but that resolved within 2 days of delivery. About 5 days ago she developed a dry cough, frontal headache, congestion, loose stools, and chills which she attributed to her allergies due to the abrupt change in temperature outside. However a couple of days ago she developed a fever up to 100.8? and was tested for COVID-19 yesterday, which came back negative. Sometime yesterday she began experiencing mild midsternal chest tightness that seems to radiate through to the scapula as well as mild shortness of breath. With further questioning, she does mention mild orthopnea and in fact has been sleeping on her wedge the last couple of days. The shortness of breath is worse when lying flat, taking a deep breath, and with exertion. She gives no significant alleviating factors. In the emergency department her initial troponin was slightly elevated as well as her BNP and white blood cell count. CT scan was negative for pulmonary embolism but did show small pleural effusions. She does not have any current chest discomfort or significant shortness of breath. She has urinated quite a bit since receiving Lasix in the emergency department. Of note she has been experiencing dysuria and urinary frequency, similar to when she has had urinary tract infections in the past. No nausea or vomiting. She denies palpitations and feelings of racing heart. Review of Systems Review of Systems: Narrative: Twelve systems were reviewed with pertinent positives and negatives as per HPI. No sick contacts. She and her have been staying at home since the of her child, and they have not really even left the house. Their groceries are delivered. Family members have come to visit the baby but none of them have had similar symptoms. Except as documented, all other systems were reviewed and are negative. [facility] Past Medical History Medical History (Updated 08/03/20 @ 22:55 by Kalli Green PA-C) Elevated blood pressure affecting , antepartum History of urinary tract infection Iron deficiency anemia Surgical History Surgical History (Updated 08/03/20 @ 22:53 by Kalli Green PA-C) History of wisdom tooth extraction Family History Family History Grandparent Family history of heart disease in male family member before age 55 Family history of malignant neoplasm of breast Father Diabetes mellitus Mother Hypothyroidism Social History Social History (Updated 08/03/20 @ 22:54 by Kalli Green PA-C) Social History: The patient is and lives with her and their son in [place]. 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 Lifelong nonsmoker. No alcohol or illicit substance use. She designates her Jethro as her surrogate decision maker and she wishes to be a full code. Substance use: never Spiritual care concerns: No Meds Home Medications and Allergies Home Medications Medication Instructions Recorded Confirmed Type ferrous sulfate 325 mg PO DAILY 06/21/20 08/03/20 History prenat.vits,debora,bxh-aigo-yvtua 1 tablet PO DAILY 06/21/20 08/03/20 History labetalol 100 mg PO BID 08/03/20 08/03/20 History sertraline 50 mg PO DAILY 08/03/20 08/03/20 History Allergies Allergy/AdvReac Type Severity Reaction
--- NOTE | 2020-08-03 19:02 | ADMGEN ---
This patient, Edith White, was admitted to IMU Room 209-01. Patient/family oriented to hospital policies and general routines including ID bracelet, bed and alarms, visiting hours, pain management, procedures, bathroom and other care routines, personal items, smoking policy, room service/diet, and visiting hours. Information on how to activate the Rapid Response Team has been discussed. Patient/Family are encouraged to report perceived risks to care and to ask questions if they do not understand what they are told or what they should do.
[2020-08-03 19:27] LABS: Erythrocyte Sedimentation Rate 77 mm/hr (0-20)
[2020-08-03 19:30] LABS: Troponin I 0.232 ng/mL (0.000-0.034)
[2020-08-03] MEDS: POTASSIUM CHLORIDE 20 MEQ TABLET 40 MEQ PO (21:06)
[2020-08-03] MEDS: LABETALOL HCL 100 MG TABLET PO (21:07)
[2020-08-04] VITALS (12 sets, daily range): BP systolic 111–135; BP diastolic 62–82; PULSE 81–127; RESP 12–20; TEMP 36.4–37.1; O2SAT 97–98
--- NOTE | 2020-08-04 | ECHO_ITS ---
Patient Info Name: Edith White Age: 29 years : 1990 Gender: Female Ht: 68 in Wt: 240 lbs BSA: 2.33 m2 HR: 90 bpm BP: 132 / 82 mmHg Heart Rhythm: Sinus Rhythm Technical Quality: Good Exam Date: 08/04/2020 11:07 AM Exam Location: [facility] Pulmonary Exam Room: [facility] Patient Status: Inpatient Admit Date: 08/03/2020 Staff Ordering Physician: Jorge Peña MD Interventional Technologist: Ev Juares RDCS Attending Provider: Sabrina Sage PA-C Referring Physician: Casey REED; Exam Type: CA echo doppler color flow Study Info Indications - cardiomyopathy Complete two-dimensional, color flow and Doppler transthoracic echocardiogram is performed. Summary 1. Complete two-dimensional, color flow and Doppler transthoracic echocardiogram is performed. 2. Left ventricular chamber dimension is mildly enlarged. 3. Left ventricular systolic function is normal, estimated at 60-65%. 4. There is no increased left ventricular wall thickness. 5. Left ventricular septal wall motion is normal. 6. The left ventricular diastolic function is normal. 7. There is mild mitral valve regurgitation. 8. There is mild tricuspid valve regurgitation. Left Ventricle Left ventricular chamber dimension is mildly enlarged. Left ventricular systolic function is normal, estimated at 60-65%. There is no increased left ventricular wall thickness. Left ventricular septal wall motion is normal. The left ventricular diastolic function is normal. Right Ventricle Right ventricular chamber dimension is normal. Right ventricular systolic function is normal. Left Atria Left atrial chamber dimension is normal. Right Atria Right atrial chamber dimension is normal. Atrial Septum Intact interatrial septum visualized by color flow imaging. Aortic Valve The aortic valve is trileaflet. There is no aortic valve sclerosis. There is no aortic valve stenosis. There is trace aortic valve regurgitation. Pulmonic Valve The pulmonic valve is normal. There is no pulmonic valve stenosis. There is trace pulmonic regurgitation. Mitral Valve The mitral valve has normal leaflets. There is no mitral valve stenosis. There is mild mitral valve regurgitation. Tricuspid Valve The tricuspid valve leaflets are normal. There is no significant tricuspid valve stenosis. There is mild tricuspid valve regurgitation. No pulmonary hypertension, estimated pulmonary arterial systolic pressure is 26 mmHg. Pericardium/Pleural The pericardium appears normal. There is trivial pericardial effusion. Inferior Vena Cava Normal inferior vena cava with >50% collapse upon inspiration consistent with normal right atrial pressure, 10 mmHg. Aorta The aortic root size at the sinus of Valsalva is normal. The prox ascending aorta size is normal. Left Ventricular Outflow Tract Name Value Normal LVOT 2D LVOT Diameter 2.0 cm LVOT Doppler LVOT Peak Gradient 7 mmHg LVOT Mean Gradient 3 mmHg LVOT VTI 21 cm LVOT VTI/AV VTI Rati
[2020-08-04 05:02] LABS: Hemoglobin 10.6 g/dL (12.0-15.0); Mean Corpuscular HGB Conc 31.2 g/dl (32-36); Mean Corpuscular Hemoglobin 27.9 pg (26-34); Mean Corpuscular Volume 89.5 fl (80-100); Mean Platelet Volume 10.7 fl (7.4-10.4); Platelet Count Result 273 k/mm3 (150-375); Red Cell Distribution Width 14.5 % (11.5-14.5); White Blood Count 10.8 K/mm3 (4.5-10.0)
[2020-08-04 05:27] LABS: Anion Gap 4 mmol/L (8-16); Blood Urea Nitrogen 11 mg/dL (7-17); Calcium 8.6 mg/dL (8.4-10.2); Carbon Dioxide 27 mmol/L (22-30); Chloride 106 mmol/L (98-107); Estimated CRCL calculation 118 ml/min; Estimated Glomerular Filt Rate > 60; Glucose 86 mg/dL (65-105); Potassium 3.4 mmol/L (3.4-5.0); Sodium 137 mmol/L (137-145)
--- NOTE | 2020-08-04 05:37 | ECG_ITS ---
Measurements Intervals Siren Rate: 87 P: 17 OH: 170 QRS: 40 QRSD: 98 T: 53 QT: 363 QTc: 438 Interpretive Statements SINUS RHYTHM NONSPECIFIC T-WAVE ABNORMALITY- DIFFUSE LEADS BORDERLINE ECG Electronically Signed On 08-04-2020 12:25:08 SOFTWARE SALES MANAGER by Sukhjinder Cardenas D.O.
[2020-08-04] MEDS: MAG HYDROX/AL HYDROX/SIMETH 30 ML UDC PO (06:35)
--- NOTE | 2020-08-04 08:52 | PM.IMPN ---
Progress Note: A&P Assessment and Plan (1) Chest pain: Code(s): R07.9 - Chest pain, unspecified Status: Acute Assessment and Plan: New onset in the past 2-3 days and worsening with associated dyspnea and orthopnea. Dyspnea resolved with lasix but she is still having chest pain with an episode early this AM. EKG was repeated and unchanged. Pain improved with mylanta. Etiology is not clear at this time but may be related to her hypertension, volume overload post , antepartum cardiomyopathy, or even myopericarditis as she has preceding viral symptoms. CRP elevated at 20 and ESR elevated at 77. Initial SARS-CoV-2 testing was negative and repeat testing is pending. Cardiology and SIEBEL SOLUTION ARCHITECT have been consulted and input is greatly appreciated Echocardiogram ordered and pending Continue ASA Continue telemetry monitoring Await further recommendations from cardiology and SIEBEL SOLUTION ARCHITECT (2) Elevated troponin: Code(s): R77.8 - Other specified abnormalities of plasma proteins Status: Acute Assessment and Plan: Troponin was elevated to 0.335 initially and repeat at 3 hr 0.28 and 6 hr 0.232. Etiology is not clear. This could be secondary to hypertension, volume overload post , antepartum cardiomyopathy, myopericarditis as she has viral symptoms, or ACS. EKG demonstrated sinus tachycardia with nonspecific T wave abnormality in the inferior leads. Cardiology following with management deferred to cardiology Continue telemetry Continue ASA Echocardiogram ordered and pending Await cardiology recommendations (3) Pleural effusion: Code(s): J90 - Pleural effusion, not elsewhere classified Status: Acute Assessment and Plan: Noted on chest CTA. Cardiology is following. Echo is pending, await echo results Continue lasix (4) Elevated blood pressure affecting , antepartum: Code(s): O16.9 - Unspecified maternal hypertension, unspecified trimester Status: Acute Assessment and Plan: She developed antepartum hypertension and labetalol was initiated. Blood pressures are at target. Continue labetalol Continue to monitor 24 hour urine protein ordered and pending (5) Urinary tract infection: Code(s): N39.0 - Urinary tract infection, site not specified Status: Acute Assessment and Plan: She endorsed increased urinary frequency and incomplete bladder emptying. Urinalysis demonstrated 10-15 WBC, trace leukocyte esterase. She is on IV ceftriaxone. WBC is improving. She is afebrile. Continue IV ceftriaxone Await urine culture and tailor antibiotics accordingly Subjective Date/time seen: 08/04/20 08:52 Mrs. White is a 29 y.o. female who is 3 weeks following uncomplicated delivery of her 1st child on 07/14/2020 with PMH significant for antepartum hypertension and iron deficiency who is seen in follow-up for chest pain. She notes that she developed pain in the chest at 3AM when she got up to go to the restroom. Pain was across the midchest and described as intermittent and stabbing with stabbing discomfort localized substernal and just to the left. Pain radiates to the midback. Pain is worse lying flat and improved sitting up. She stated pain improved a bit but was still present when she woke up at 4AM. She states that pain improved with mylanta. She is more comfortable at this time. She reports no significant dyspnea following lasix. She reports mild nausea and minimal appetite today. She attributes her appetite changes to stress. She reports that she does notice tachycardia when she gets up to ambulate and occasional skipped beats but no disabling palpitations. She has no dizziness of lightheadedness. She has no abdominal pain. She does feel constipated and thinks she needs to have a bowel movement soon. Her urinary symptoms have resolved. She was previously having frequency and incomplete emptying.
[2020-08-04] MEDS: FUROSEMIDE INJ 40 MG/4 ML VIAL 20 MG IV PUSH (09:34)
[2020-08-04] MEDS: FERROUS SULFATE 324 MG TABLET PO (09:35)
[2020-08-04] MEDS: ASPIRIN 325 MG TABLET PO (09:35)
[2020-08-04] MEDS: SERTRALINE HCL 50 MG TABLET PO (09:35)
[2020-08-04] MEDS: LABETALOL HCL 100 MG TABLET PO (09:35)
[2020-08-04] MEDS: MULTIVIT/MIN/PREN/FOL AC/IRON TABLET 1 TAB PO (09:35)
--- NOTE | 2020-08-04 10:55 | PM.PNCARD ---
Progress Note: A&P Assessment and Plan (1) Elevated troponin: Code(s): R77.8 - Other specified abnormalities of plasma proteins Status: Acute Assessment and Plan: Significant and new. Uncertain etiology at this point. Possibilities include a myopericarditis which potentially could be viral versus cardiomyopathy versus ACS ( such as associated with a spontaneous dissection) although much less likely versus high blood pressure. CRP is elevated. ESR is pending. Continue beta-gloria. DC furosemide. Will check an HOMERO panel, TSH, free T4 level. Awaiting echocardiogram. Will also give a dose of Toradol 30 mg IV x1. It is contraindicated with breast-feeding and I did tell her this and she verbalized understanding and will pump and discard for now. Myopericarditis seems most likely although the timing is peculiar post . Repeat COVID test is pending (2) Chest pain: Code(s): R07.9 - Chest pain, unspecified Status: Acute Assessment and Plan: Significant and new. As above. 40 mg of p.o. potassium chloride x1 (3) Elevated blood pressure affecting , antepartum: Code(s): O16.9 - Unspecified maternal hypertension, unspecified trimester Status: Acute Assessment and Plan: Labetalol to be continued (4) UTI (urinary tract infection): Code(s): N39.0 - Urinary tract infection, site not specified Status: Acute Assessment and Plan: Continue ceftriaxone Subjective Date/time seen: 08/04/20 10:55 Interval history: 29-year-old 3 weeks presented with chest pain Date of service 08/04/2020: Had a little chest pain last night but overall her discomfort is better. She does get a little dizzy and elevated heart rate whenever she is walking to and from the bathroom. No shortness of breath Review of Systems Review of Systems: All systems reviewed & are unremarkable except as noted in HPI and below Constitutional: Constitutional: Denies fatigue, Reports headache(s) and Denies weakness Eyes: Eyes: Denies blurry vision ENT: Denies Normal hearing present, Reports headache(s) and Denies neck pain Cardiovascular: Cardiovascular: Reports chest pain, Reports leg edema and Reports dyspnea Respiratory: Respiratory: Reports cough and Reports dyspnea Gastrointestinal: Gastrointestinal: Denies abdominal pain Genitourinary: Genitourinary: Denies flank pain Musculoskeletal: Musculoskeletal: Denies back pain and Denies neck pain Integumentary/Breasts: Skin/Breast: Denies dry skin Neurologic: Denies Normal hearing present, Reports headache(s) and Denies weakness Psychiatric: Psychiatric: Denies anxiety Endocrine: Endocrine: Denies fatigue Hematologic/Lymphatic: Hematologic/Lymphatic: Denies easy bleeding Allergic/Immunologic: Allergic/Immunologic: Denies GI upset with certain foods Exam Narrative: Exam Narrative: Alert oriented appears to be in no acute distress but nervous Const: General: comfortable and no acute distress HENMT: General nose exam: Normal nares present Eyes: Sclera: sclerae normal Neck: Neck: supple and no JVD Chest: Other: No reproducible chest wall pain to palpation Resp: Effort & Inspection: normal respiratory effort Auscultation: clear to auscultation bilaterally Cardio: Rate: regular rate Rhythm: regular rhythm Heart sounds: no rubs GI: Inspection: non-distended Skin: General skin exam: normal color Neuro: Cranial nerves: No Normal hearing present Cognition (Neuro): normal cognition Speech: normal speech Extrem: General: normal to inspection and no edema Psych: Mental Status: mental status grossly normal Objective Data Vital Signs Vital Signs: Vital Signs - 24 hr 08/03/20 12:29 08/03/20 14:06 08/03/20 14:18 Temperature 36.2 C L Pulse Rate 97 96 94 Respiratory Rate 18 17 19 Blood Pressure 122/73 Pulse Oximetry 100 100 99 08/03/20 14:50 08/03/20 15:02 08/03
[2020-08-04] MEDS: KETOROLAC 30 MG/ML VIAL (*BKC) IV PUSH (11:23)
[2020-08-04] MEDS: POTASSIUM CHLORIDE 20 MEQ TABLET 40 MEQ PO (11:23)
[2020-08-04 12:06] LABS: T4 Thyroxine 8.66 ug/dL (5.53-11.0)
--- NOTE | 2020-08-04 12:07 | PM.IMHP ---
H&P: HPI History of Present Illness Date/Time: 08/04/20 12:07 Chief Complaint: htn pp Narrative: Edith White is a 29 year old female Delivered within the last 3 weeks presented with shortness of breath and chest pain. She had normal blood pressures during her however had some elevated pressures. She was started on labetalol b.i.d. she returned and is has an appearance possible cardiomyopathy. She has also had some muscle aches and pains Avinash Munoz to rule out viral issues as well. Review of Systems Review of Systems: All systems reviewed & are unremarkable except as noted in HPI and below PMFSH Past Medical History Medical History Elevated blood pressure affecting , antepartum History of urinary tract infection Iron deficiency anemia Surgical History Surgical History (Updated 08/03/20 @ 22:53 by Kalli Green PA-C) History of wisdom tooth extraction Family History Family History Grandparent Family history of heart disease in male family member before age 55 Family history of malignant neoplasm of breast Father Diabetes mellitus Mother Hypothyroidism Social History Social History (Updated 08/03/20 @ 22:54 by Kalli Green PA-C) Social History: The patient is and lives with her and their son in [place]. 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 Lifelong nonsmoker. No alcohol or illicit substance use. She designates her Jethro as her surrogate decision maker and she wishes to be a full code. Substance use: never Spiritual care concerns: No Meds Home Medications and Allergies Home Medications Medication Instructions Recorded Confirmed Type ferrous sulfate 325 mg PO DAILY 06/21/20 08/03/20 History prenat.vits,debora,nit-mltb-hmcjx 1 tablet PO DAILY 06/21/20 08/03/20 History labetalol 100 mg PO BID 08/03/20 08/03/20 History sertraline 50 mg PO DAILY 08/03/20 08/03/20 History Allergies Allergy/AdvReac Type Severity Reaction Status Date / Time No Known Allergies Allergy Verified 08/03/20 12:33 Vital Signs Vital Signs - 24 hr 08/03/20 12:29 08/03/20 14:06 08/03/20 14:18 Temperature 97.2 F L Pulse Rate 97 96 94 Respiratory Rate 18 17 19 Blood Pressure 122/73 Pulse Oximetry 100 100 99 08/03/20 14:50 08/03/20 15:02 08/03/20 15:07 Temperature Pulse Rate 94 96 110 H Respiratory Rate 20 22 H Blood Pressure Pulse Oximetry 99 08/03/20 15:15 08/03/20 15:30 08/03/20 15:43 Temperature Pulse Rate 89 90 92 Respiratory Rate 16 18 18 Blood Pressure 116/68 Pulse Oximetry 98 99 99 08/03/20 15:45 08/03/20 15:46 08/03/20 16:00 Temperature Pulse Rate 94 98 86 Respiratory Rate 18 14 24 H Blood Pressure 121/106 H Pulse Oximetry 98 99 99 08/03/20 16:01 08/03/20 16:02 08/03/20 16:19 Temperature Pulse Rate 92 93 90 Respiratory Rate 20 16 22 H Blood Pressure 119/82 Pulse Oximetry 98 99 08/03/20 16:30 08/03/20 16:45 08/03/20 17:00 Temperature Pulse Rate 88 103 H 105 H Respiratory Rate 15 Blood Pressure Pulse Oximetry 100 08/03/20 17:15 08/03/20 17:30 08/03/20 17:34 Temperature Pulse Rate 110 H 97 90 Respiratory Rate Blood Pressure 112/72 Pulse Oximetry 100 97 08/03/20 17:45 08/03/20 18:00 08/03/20 18:15 Temperature Pulse Rate 95 100 95 Respiratory Rate Blood Pressure Pulse Oximetry 97 99 99 08/03/20 18:40 08/03/20 20:00 08/03/20 21:07 Temperature 97.9 F Pulse Rate 94 101 H 124 H Respiratory Rate 14 Blood Pressure 138/88 Pulse Oximetry 99 08/03/20 21:17 08/03/20 22:00 08/04/20 00:00 Temperature 98.1 F Pulse Rate 97 89 90 Respiratory Rate 16 Blood Pressure 115/66 Pulse Oximetry 97 98 08/04/20 02:00 08/04/20 04:00
[2020-08-04 16:55] LABS: SARS-CoV-2 RNA PCR Negative
[2020-08-04] MEDS: MORPHINE SULFATE (*CRX) 2 MG/ML INJ IV PUSH (20:39)
[2020-08-04] MEDS: METOPROLOL TARTRATE 50 MG TAB PO (20:40)
[2020-08-04 20:59] LABS: Total Volume 24 Hour Urine 2100 ml
[2020-08-04 21:07] LABS: Total Protein Urine 24 Hr 273 MG/DAY (28-141); Total Protein Urine Random 13 mg/dL
[2020-08-05] VITALS (10 sets, daily range): BP systolic 96–110; BP diastolic 54–69; PULSE 77–95; RESP 16–20; TEMP 35.6–36.6; O2SAT 96–100
[2020-08-05 04:56] LABS: Basophils Percent Auto 0.3 % (0.2-1.2); Eosinophils Absolute Auto 0.3 K/mm3 (0-0.3); Eosinophils Percent Auto 3.6 % (0-4.4); Hematocrit 36.7 % (37.0-47.0); Hemoglobin 11.6 g/dL (12.0-15.0); Immature Granulocyte Absolute 0.06 K/mm3 (0.00-0.031); Immature Granulocyte Percent A 0.6 % (0-0.5); Lymphocytes Absolute Auto 2.12 K/mm3 (0.9-3.2); Lymphocytes Percent Auto 22.3 % (18.3-44.2); Mean Corpuscular HGB Conc 31.6 g/dl (32-36); Mean Corpuscular Hemoglobin 28.2 pg (26-34); Mean Corpuscular Volume 89.1 fl (80-100); Mean Platelet Volume 10.7 fl (7.4-10.4); Monocytes Absolute Auto 0.7 K/mm3 (0.1-0.6); Monocytes Percent Auto 7.6 % (2.6-8.5); Neutrophils Absolute Auto 6.2 K/mm3 (1.3-6.7); Neutrophils Percent Auto 65.6 % (45.5-73.1); Platelet Count Result 318 k/mm3 (150-375); Red Blood Count 4.12 M/mm3 (4.2-5.4); Red Cell Distribution Width 14.5 % (11.5-14.5); White Blood Count 9.5 K/mm3 (4.5-10.0)
[2020-08-05 05:14] LABS: Anion Gap 7 mmol/L (8-16); Blood Urea Nitrogen 14 mg/dL (7-17); CRP 8.4 mg/dL (<1.0); Calcium 9.2 mg/dL (8.4-10.2); Carbon Dioxide 27 mmol/L (22-30); Chloride 107 mmol/L (98-107); Estimated CRCL calculation 119 ml/min; Estimated Glomerular Filt Rate > 60; Glucose 94 mg/dL (65-105); Potassium 3.5 mmol/L (3.4-5.0); Sodium 141 mmol/L (137-145)
[2020-08-05 05:16] LABS: Magnesium 1.8 mg/dL (1.6-2.3)
[2020-08-05] MEDS: FERROUS SULFATE 324 MG TABLET PO (08:09)
[2020-08-05] MEDS: MULTIVIT/MIN/PREN/FOL AC/IRON TABLET 1 TAB PO (08:09)
[2020-08-05] MEDS: SERTRALINE HCL 50 MG TABLET PO (08:09)
[2020-08-05] MEDS: METOPROLOL TARTRATE 50 MG TAB PO (08:09)
--- NOTE | 2020-08-05 13:14 | ECG_ITS ---
Measurements Intervals [place] Rate: 74 P: -8 VA: 167 QRS: 45 QRSD: 97 T: 35 QT: 374 QTc: 415 Interpretive Statements SINUS RHYTHM NONSPECIFIC T-WAVE ABNORMALITY- HIGH LATERAL LEADS BASELINE WANDER- III, V5 BORDERLINE ECG Electronically Signed On 08-05-2020 13:53:31 [place] by Sukhjinder Cardenas D.O.
--- NOTE | 2020-08-05 13:15 | PM.PNCARD ---
Progress Note: A&P Assessment and Plan (1) Elevated troponin: Code(s): R77.8 - Other specified abnormalities of plasma proteins Status: Acute Assessment and Plan: Significant and new. Uncertain etiology at this point. Possibilities include a myopericarditis which potentially could be viral versus cardiomyopathy versus ACS ( such as associated with a spontaneous dissection) although much less likely versus high blood pressure. CRP is elevated but trending down. ESR is pending. Continue beta-gloria in her heart rate is much better controlled with metoprolol.. HOMERO panel is pending. Given her symptoms that were recurrent last night I will check a repeat EKG and troponin. Will start ibuprofen 400 mg p.o. Myopericarditis versus peripartum cardiomyopathy although she does not meet strict definition for peripartum cardiomyopathy as her EF is normal despite mild LV enlargement (2) Chest pain: Code(s): R07.9 - Chest pain, unspecified Status: Acute Assessment and Plan: Significant and new. As above. (3) Elevated blood pressure affecting , antepartum: Code(s): O16.9 - Unspecified maternal hypertension, unspecified trimester Status: Acute Assessment and Plan: On metoprolol (4) UTI (urinary tract infection): Code(s): N39.0 - Urinary tract infection, site not specified Status: Acute Assessment and Plan: Continue ceftriaxone (5) Hypokalemia: Code(s): E87.6 - Hypokalemia Status: Acute Assessment and Plan: KCL 40 mg p.o. x1 Subjective Date/time seen: 08/05/20 13:15 Interval history: 29-year-old 3 weeks presented with chest pain Date of service 08/05/2020: She again had chest pain last night whenever she got up to go to the bathroom. It would come and go. She did require morphine. Feels better today. No shortness of breath her palpitations are better with metoprolol Review of Systems Review of Systems: All systems reviewed & are unremarkable except as noted in HPI and below Constitutional: Constitutional: Denies fatigue, Reports headache(s) and Denies weakness Eyes: Eyes: Denies blurry vision ENT: Denies Normal hearing present, Reports headache(s) and Denies neck pain Cardiovascular: Cardiovascular: Reports chest pain, Reports leg edema and Reports dyspnea Respiratory: Respiratory: Reports cough and Reports dyspnea Gastrointestinal: Gastrointestinal: Denies abdominal pain Genitourinary: Genitourinary: Denies flank pain Musculoskeletal: Musculoskeletal: Denies back pain and Denies neck pain Integumentary/Breasts: Skin/Breast: Denies dry skin Neurologic: Denies Normal hearing present, Reports headache(s) and Denies weakness Psychiatric: Psychiatric: Denies anxiety Endocrine: Endocrine: Denies fatigue Hematologic/Lymphatic: Hematologic/Lymphatic: Denies easy bleeding Allergic/Immunologic: Allergic/Immunologic: Denies GI upset with certain foods Exam Narrative: Exam Narrative: Alert oriented appears to be in no acute distress but nervous Const: General: comfortable and no acute distress HENMT: General nose exam: Normal nares present Eyes: Sclera: sclerae normal Neck: Neck: supple and no JVD Chest: Other: No reproducible chest wall pain to palpation Resp: Effort & Inspection: normal respiratory effort Auscultation: clear to auscultation bilaterally Cardio: Rate: regular rate Rhythm: regular rhythm Heart sounds: no rubs GI: Inspection: non-distended Skin: General skin exam: normal color Neuro: Cranial nerves: No Normal hearing present Cognition (Neuro): normal cognition Speech: normal speech Extrem: General: normal to inspection and no edema Psych: Mental Status: mental status grossly normal Objective Data Vital Signs Vital Signs: Vital Signs - 24 hr 08/04/20 14:00 08/04/20 16:00 08/04/20 18:00 Temperature 37.1 C Pulse Rate 103 H 99 110 H Respira
[2020-08-05] MEDS: IBUPROFEN 400 MG TABLET PO (13:56)
[2020-08-05 13:59] LABS: Troponin I 0.048 ng/mL (0.000-0.034)
--- NOTE | 2020-08-05 15:55 | PM.DS ---
DS: Admitting Diagnosis Admitting Diagnosis Admitting Diagnosis: Chest pain DS: Discharge Diagnosis Discharge Diagnosis (1) Myopericarditis: Code(s): I31.9 - Disease of pericardium, unspecified Status: Acute Assessment and Plan: Discharge Summary (Date of service 08/05/20): Mrs. White is a 29 y.o. female, 3 weeks following uncomplicated delivery of her 1st child on 07/14/2020, who presented to the emergency department 08/03/20 for the evaluation of chest pain and mild shortness of breath. She developed post- hypertension with BP as high as 170/100 and was treated with labetalol. 5 days prior to admission, she developed dry cough, frontal headache, congestion, loose stools, and chills. Subsequently, she developed a fever up to 100.8? and was tested for COVID-19 which was negative. The day prior to admission, she developed mild midsternal chest tightness which radiated to the scapula as well as mild shortness of breath with exertion, deep breaths, and orthopnea. In the emergency department, initial troponin was slightly elevated at 0.335 with a negative trend. BNP was slightly elevated at 1190. EKG demonstrated sinus tachycardia with nonspecific T wave abnormality in the inferior leads. CTA chest was negative for pulmonary embolism but did show small pleural effusions. She was admitted to the hospitalist service and cardiology was consulted. Repeat COVID-19 testing was performed and negative. CRP elevated at 20 and ESR elevated at 77. Her symptoms were felt most likely secondary to myopericarditis given preceding viral symptoms. Echocardiogram demonstrated mild LV chamber enlargement, normal LV systolic function and EF 60-65%, no increased LV wall thickness, normal LV septal wall motion, normal LV diastolic function, mild mitral regurgitation, and mild tricuspid regurgitation. Cardiology recommended ibuprofen and her symptoms improved significantly. Labetalol was discontinued and metoprolol was initiated for better heart rate control. Cardiology felt she was stable for discharge from a cardiology standpoint with no further workup required. She was also seen by [facility] while inpatient. She was discharged in hemodynamically stable condition on the afternoon of 08/05/20. I discussed worrisome signs and symptoms which would warrant return to the emergency department and she verbalized understanding. (2) Elevated troponin: Code(s): R77.8 - Other specified abnormalities of plasma proteins Status: Acute Assessment and Plan: Troponin was elevated to 0.335 on admission initially and repeat at 3 hr 0.28 and 6 hr 0.232. EKG demonstrated sinus tachycardia with nonspecific T wave abnormality in the inferior leads. This was felt most likely secondary to myopericarditis and not secondary to ACS. Management was deferred to cardiology. She was monitored on telemetry. She was felt stable for discharge from a cardiology standpoint and will follow-up with cardiology outpatient. (3) Pleural effusion: Code(s): J90 - Pleural effusion, not elsewhere classified Status: Acute Assessment and Plan: Noted on chest CTA. Cardiology is following. She was treated with IV lasix and dyspnea resolved. Echo demonstrated normal ;eft ventricular systolic function, EF estimated at 60-65%, and normal diastolic function. (4) Elevated blood pressure affecting , antepartum: Code(s): O16.9 - Unspecified maternal hypertension, unspecified trimester Status: Acute Assessment and Plan: She developed antepartum hypertension and labetalol was initiated prior to admission. 24 hour urine protein was 273. Cardiology discontinued labetalol and initiated metoprolol for better heart rate control and this was continued at discharge. She was advised to monitor BP daily. (5) Urinary tract infection: Code(s): N39.0 - Urinary tract infection, site not specified Status: Ruled-out Ass
== END 2020-08-05 16:45 | disposition home or self-care (01) | DRG 776 ==
LOC: ANHED 16:01 → ANHIMU 08-04 07:15
PROVIDERS: Emergency Medicine; Internal Medicine Cardiovascular Disease; Admitting Provider Family Medicine; Emergency Provider Emergency Medicine; PCP Family Medicine; Visit Provider Physician Assistant
DX: O99.43 Diseases of the circulatory system complicating the puerperium (principal); I31.9 Disease of pericardium, unspecified; J90 Pleural effusion, not elsewhere classified; O99.53 Diseases of the respiratory system complicating the puerperium; Z20.822 Contact with and (suspected) exposure to COVID-19; O16.5 Unspecified maternal hypertension, complicating the puerperium; O99.285 Endocrine, nutritional and metabolic diseases complicating the puerperium; E87.6 Hypokalemia; O90.81 Anemia of the puerperium; D50.9 Iron deficiency anemia, unspecified; Z79.899 Other long term (current) drug therapy
CPT/HCPCS: 36415; 71046; 71275; 80048; 80053; 80076; 81001; 81050; 82570; 83735; 83880; 84156; 84436; 84443; 84484; 84550; 85025; 85027; 85610; 85652; 85730; 86038; 86140; 87086; 87088; 93005; 93306; 99285; A9270; C9803; J0696; J1885; J1940; J2270; Q9967; U0003; U0005